=== PATIENT | male | born 1980 | race Caucasian/White ===

== ENCOUNTER → 2017-01-14 | Day surgery (SDC) | payer OTHER ==
[~2017-01-14] VITALS: Ht 177.8 cm; Wt 83.9 kg
--- NOTE | 2017-01-14 17:26 | Operative Report ---
Operative/Inv Procedure Report Surgery Date: 01/14/17 Name of Procedure: Left arthroscopically-assisted ACL reconstruction with patellar tendon autograft Left lateral meniscus repair Pre-Operative Diagnosis: Left knee ACL tear Left medical meniscus tear Post-Operative Diagnosis: Left knee ACL tear Left medical meniscus tear Left lateral meniscus tear Estimated Blood Loss: 25mL Surgeon/Government Gauger: RUBA LEMA,HANH Thornton MD, A.G. Anesthesia: laryngeal mask airway, block IV Fluids: 1700mL Implants: [employer] Profile Interference Screws - femur 8x20mm, tibia 9x25mm [employer] FasTfix 360 curved x2 Urine Output: Not recorded Drains: None Specimens: None Microbiology: None Tourniquet: 115min Complications: None Condition: Stable Operative/Procedure Note Note: INDICATION FOR PROCEDURE: Harley Landeros is a 36 year-old male who sustained a left knee injury while playing soccer. He had immediate pain and a large effusion. His exam was consistent with an ACL tear, which was confirmed with MRI. He also has a medial meniscus tear. Due to poor range of motion following his injury, he participated in physical therapy for several weeks to regain motion prior to proceeding with ACL reconstruction with patellar tendon autograft. OPERATIVE REPORT: Mr. Landeros arrived at [facility] on 01/14/17. He was met in the pre-op area, where his operative extremity was marked and his medical history was reviewed. A regional block was performed by the anesthesia service. The patient was then taken into the OR and placed supine on the table. A time-out was performed in which the patient, the operative extremity, and the planned procedure were verified. SCDs were applied to the right lower leg, but no additional VTE chemoprophylaxis was administered. He was induced under general anesthesia. Lizzy-operative IV cefazolin was administered. Examination under anesthesia revealed a positive Shamir's and a pivot glide. A nonsterile tourniquet was applied to the left upper thigh, and the left lower extremity was prepped and draped in the usual sterile fashion. The leg was exsanguinated with an esmarch bandage and the tourniquet raised to 300mmHg. With the knee in flexion, a medial parapatellar incision was made through the skin and subcutaenous tissues down to the paratenon. Flaps were raise medial and lateral. The paratenon was sharply divided. The patellar tendon measured 30mm in width; the central 10mm was measured and incised using a #15 scalpel. A bone block measuring 25mm in length was taken from the tibial tubercle using a saw. The knee was brought into extension, and a bone block measuring 20mm was taken from the inferior patella. The graft was taken to the back table to for preparation. The femoral bone plug measured 10mm in diameter and the tibial plug measured 9mm in diameter. The tendinous length was 40mm. Two perpendicular #2 orthocord sutures were placed in the femoral plug, and two parallel #5 fiberwire sutures were placed in the tibial plug. The graft was wrapped with a sponge soaked in vancomycin solution. Inferomedial and inferolateral portals were created within the incision. The arthroscope was introduced and a diagnostic arthroscopy was performed. The patellofemroal compartment was in good condition. No loose bodies were found in the knee. The ACL remnant was noted in the notch, and this was carefully debrided. The anterior fat pad was debrided for better visualization. With the knee extended with a valgus load, the medial compartment was evaluated. The medial femoral condyle had considerable chondral wear without unstable flaps or full-thickness cartilage loss. The medial meniscus was intact and stable, however an undersurface tear was noted in the posterior body. This was not full thickness and did not readily displace; no fixation was required. The knee was then taken into the [id number] position to evaluate the lateral compartment. The cartilage was in good condition, however a large complex tear was noted in the posterior body, between the popliteal hiatus and the root. The root was stable. The tear was full thickness and in the peripheral third and amenable to repair. Two FasTFix 360 all-inside sutures were placed in a vertical mattress configuration; one on the top of the meniscus and one on the inferior surface. This provided good stability of the tear when tested with a probe. Care was taken to aim the repair device away from the popliteus tendon. The knee was taken back to 90 deg flexion. Given the bone plug sizes of the graft, both the femoral and tibial tunnels were drilled to 10mm in diameter. An accessory medial portal was created after localization with a spinal needle; a beath pin was placed in the footprint of the [place] ACL, between the two bundles. The knee was taken into hyperflexion and the pin driven from medial to lateral, exiting the lateral femur in the mid-portion of the IT band. The 10mm partially-fluted reamer was then passed carefully into the knee to avoid damage to the medial femoral condyle. A tunnel was drilled to a depth of 25mm. A passing suture was then threaded through the beath pin and the pin removed. The knee was then brought to 90 deg. The tibial guide was set at 50 deg and placed in the tibial ACL footprint, in line with the anterior horn of the lateral meniscus. The tunnel was drilled with a 10mm reamer, and bone was collected and used for grafting at the end of the case. A shaver was then introduced to remove the bone and soft tissue debris. The patellar tendon graft was then brought to the table. Using the passing stitch, it was fed through the tibial tunnel, into the knee, and into the femoral tunnel with good fit. The knee was brought into hyperflexion. A nitinol wire was placed through the accessory medial portal and placed between the bone plug and femoral tunnel. Graft fixation was acheived with a 8x20mm metallic screw placed over a nitinol wire for bony interference fit. The knee was cycled approximately 10 times, and the knee held in full extension with maximal tension on the tibial graft. A nitinol wire was again placed between the bone plug and tibial tunnel, and fixation was acheived with a 9x25mm metallic screw placed over the nitinol. The tourniquet was released after 115min and the knee was copiously irrigated with normal saline with bacitracin. Bone graft was placed preferentially in the patellar defect, as well as in the tibial defect. The patellar tendon was re- approximately with three interrupted #0 vicryl stitches and the paratenon was closed with #0 vicryl. The bursal layer was closed with a running #0 vicryl suture, followed by layered closure with #2-0 vicryl and #3-0 running suture for skin. The incision was reinforced with steri strips and dressed with gauze and webril. The patient's ice machine pad was placed over the sterile dressing and secured with an elastic bandage. The patient was woken from general anesthesia and taken from the OR to the recovery room in stable condition.
== END ==
LOC: STS 01:29
DX: S83.512A Sprain of anterior cruciate ligament of left knee, initial encounter (principal); Y93.66 Activity, soccer; S83.242A Other tear of medial meniscus, current injury, left knee, initial encounter; S83.282A Other tear of lateral meniscus, current injury, left knee, initial encounter
CPT/HCPCS: J0131; J0690; J1100; J1885; J2250; J2405; J3370